=== PATIENT | female | born 1995 | race Caucasian/White ===

== ENCOUNTER 2016-10-06 11:03 | Emergency (ER) | payer BC ==
[~2016-10-06] VITALS: Ht 162.6 cm; Wt 58.6 kg
[~2016-10-06 11:03] MED LIST: MOTRIN600 MG PO
[2016-10-06 13:14] VITALS: BP 138/96
== END 2016-10-06 13:15 | disposition home or self-care (01) ==
LOC: EME 11:03
DX: G43.909 Migraine, unspecified, not intractable, without status migrainosus (principal); F17.200 Nicotine dependence, unspecified, uncomplicated
CPT/HCPCS: 80048; 84702; 85027; 99281; 99284; J1100; J1200; J7030